=== PATIENT | male | born 1935 | race Caucasian/White ===

== ENCOUNTER → 2018-02-02 09:27 | Outpatient (CLI) | payer MEDICARE, SELFPAY ==
[2018-02-02 09:54] LABS: Prothrombin Time (Protime)PT. 51.4 SECONDS (11.7-14.9)
[2018-02-02 10:03] LABS: International Normalized Ratio 5.6
--- OUTSIDE RECORDS SUMMARY | 2018-05-06 16:15 | XMS RPT_ITS ---
:1935 Author Organization [facility] Care Team Providers Name Role Phone MAIKEL CORDERO Referring Unavailable CORDERO, MAIKEL Canas Referring Unavailable CORDERO, MAIKEL Canas Referring Unavailable CORDERO, MAIKEL Canas Referring Unavailable CORDERO, MAIKEL Canas Referring Unavailable CORDERO, MAIKEL Canas Referring Unavailable OLDER, CHANTELLE ARAMBULA) Attending Unavailable OLDER, CHANTELLE (YADY) Referring Unavailable OLDER, CHANTELLE (YADY) Referring Unavailable CORDERO, MAIKEL Canas Referring Unavailable CORDERO, MAIKEL Canas Referring Unavailable CORDERO, MAIKEL Canas Referring Unavailable CORDERO, MAIKEL Canas Referring Unavailable CORDERO, MAIKEL Canas Referring Unavailable CORDERO, MAIKEL Canas Referring Unavailable CORDERO, MAIKEL Canas Referring Unavailable CORDERO, MAIKEL Canas Referring Unavailable OLDER, CHANTELLE (YADY) Attending Unavailable OLDER, CHANTELLE (YADY) Referring Unavailable CORDERO, MAIKEL Canas Referring Unavailable CORDERO, MAIKEL Canas Referring Unavailable CORDERO, MAIKEL Canas Referring Unavailable Cordero, Maikel Attending Unavailable Cordero, Maikel Referring Unavailable Cordero, Maikel Primary Care Unavailable Cordero, Maikel Attending Unavailable Cordero, Maikel Referring Unavailable Cordero, Maikel Primary Care Unavailable PROBLEMS PROBLEMS DATE TYPE CONDITION / CODE ATTENDING STATUS SOURCE 02/08/2018 Unknown 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, Active Abbi Unspecified atrial Maikel [facility] fibrillation / Hospital I48.91(ICD-10) Repository 05/17/2009 Active Unspecified atrial NA Active [facility] fibrillation / [place] I48.91(ICD-10) Repository 07/08/2017 Active Type 2 diabetes NA Active [facility] mellitus without [place] complications / Repository E11.9(ICD-10) 07/03/2017 Active Other nursing home NA Active [facility] (current) drug [place] therapy / Repository Z79.899(ICD-10) PROCEDURES PROCEDURES No Procedure Records FoundRESULTS RESULTS PROGRESS Observed: 02/25/2018 Status: COMPLETED Source: [place] 1:31 PM [facility] REPOSITORY HNO ID: [id number] Author: Kaylyn Healy LPN Service: (none) Author Type: (none) Type: Progress Notes Filed: 02/25/2018 1:31 PM Note Text: Patient notified of results and provider's instructions. Patient verbalizes understanding. Kaylyn Healy LPN PROGRESS Observed: 02/25/2018 Status: COMPLETED Source: [place] 12:41 PM [facility] REPOSITORY HNO ID: [id number] Author: Maikel Cordero Service: (none) Author Type: Physician Type: Progress Notes Filed: 02/25/2018 1:31 PM Note Text: Increase Coumadin dose to 1.25 mg on Wednesdays and 2.5 mg on all other 6 days. INR in 2 weeks. PROGRESS Observed: 02/25/2018 Status: COMPLETED Source: [place] 10:57 AM [facility] REPOSITORY HNO ID: [id number] Author: Oliva Crowley RN Service: (none) Author Type: (none) Type: Progress Notes Filed: 02/25/2018 10:58 AM Note Text: patient had inr completed at [facility] patients inr is 1.8 (patients inr range is 2.0-3.0) patient is currently taking 1.25mg Mon,Wed and 2.5mg all other days patients last dose change was on 02/18/18 due to a low level of 1.5 (dose at that time was 1.25mg Mon,Wed,Fri and 2.5mg all other days) patient has had no changes in medication except for coumadin and no missed doses and no change in diet Advised patient that they would be contacted regarding medication dose and when to follow up after information is reviewed by provider. After provider review please contact the patient with information and schedule follow up appointment with coumadin clinic. PROGRESS Observed: 02/18/2018 Status: COMPLETED Source: [place] 4:26 PM [facility] REPOSITORY HNO ID: [id number] Author: Kaylyn Healy LPN Service: (none) Author Type: (none) Type: Progress Notes Filed: 02/18/2018 4:26 PM Note Text: Patient notified of results and provider's instructions. Patient verbalizes understanding. Kaylyn Healy LPN PROGRESS Observed: 02/18/2018 Status: COMPLETED Source: [place] 10:20 AM [facility] REPOSITORY HNO ID: [id number] Author: Chantelle Arambula) Domenica Service: (none) Author Type: Nurse Practitioner Type: Progress Notes Filed: 02/18/2018 4:26 PM Note Text: Change dose to 1.25 mg on Mon and Wed only and 2.5 mg all other days. Repeat in 1 week. Chantelle Olea APRN.CNP PROGRESS Observed: 02/18/2018 Status: COMPLETED Source: [place] 9:55 AM [facility] REPOSITORY HNO ID: [id number] Author: Oliva Crowley RN Service: (none) Author Type: (none) Type: Progress Notes Filed: 02/18/2018 9:57 AM Note Text: patient had inr completed at [facility] patients inr is 1.5 (patients inr range is 2.0-3.0) patient is currently taking 1.25mg Mon,Wed,Fri and 2.5mg all other days patients last dose change was on 02/02/18 due to a high level of 6.5 (dose at that time ws 2.5mg daily) patient has had no changes in medication and no uninstructed missed doses and no change in diet FYI - patient just restarted this dose of coumadin on 02/10 Advised patient that they would be contacted regarding medication dose and when to follow up after information is reviewed by provider. After provider review please contact the patient with information and schedule follow up appointment with coumadin clinic. FYI- patient has been scheduled for a 2 week follow up inr on 03/04/18 PROTHROMBIN TIME W/INR Collected: 02/08/2018 Status: F Source: [place] 10:30 AM [facility] REPOSITORY Order Comment: CALL RESULTS TO [phone] TYPE CODE TESTS RESULT OUT OF RANGE REFERENCE UNITS LAB L300.4150 11.7-14.9 SECONDS High PROTIME 22.9 LAB L300.4200 Normal INR 2.0 Performed By: #### L300.3900 #### [facility] [address] [place], [address] PROTIME Collected: 02/08/2018 Status: F Source: [place] 10:25 AM [facility] REPOSITORY TYPE CODE TESTS RESULT OUT OF REFERENCE UNITS RANGE LAB PSEC 9.7-13.0 sec PT Sec Unable to assay. No specimen received. Result Comment: Account Credited LAB INR 0.9-1.3 Unable to PT INR assay. No specimen received. Result Comment: Account Credited Performed By: #### PT #### [facility] [address], [place] [address] PROGRESS Observed: 02/08/2018 Status: COMPLETED Source: [place] 9:51 AM [facility] REPOSITORY HNO ID: [id number] Author: Aiyana (Rn) DRE Martinez Service: (none) Author Type: Registered Nurse Type: Progress Notes Filed: 02/11/2018 4:36 PM Note Text: Pt returns call, message below given with understanding. Pt will come to lab this AM. PROGRESS Observed: 02/05/2018 Status: COMPLETED Source: [place] 3:23 PM [facility] REPOSITORY HNO ID: [id number] Author: Kaylyn Healy LPN Service: (none) Author Type: (none) Type: Progress Notes Filed: 02/11/2018 4:36 PM Note Text: Message left for pt to return call to a nurse. Please ask pt to do INR blood draw with the lab 02/08/18 by 9 am. PROGRESS Observed: 02/05/2018 Status: COMPLETED Source: [place] 2:17 PM [facility] REPOSITORY HNO ID: [id number] Author: Maikel Cordero Service: (none) Author Type: Physician Type: Progress Notes Filed: 02/11/2018 4:36 PM Note Text: Continue holding coumadin. Recheck . PROGRESS Observed: 02/05/2018 Status: COMPLETED Source: [place] 11:08 AM [facility] REPOSITORY HNO ID: [id number] Author: Oliva Crowley RN Service: (none) Author Type: (none) Type: Progress Notes Filed: 02/05/2018 11:10 AM Note Text: patient had inr completed at [facility] patients inr is 6.5 (patients inr range is 2.0-3.0) patient is currently holding (2.5mg daily) patients last dose change was on 02/02/18 due to a high level of >8.0 at the [facility] and lab draw was 5.6 patient has had no changes in medication except for coumadin and no change in diet FYI- patient states that the only thing he did different was Sun and Thursday he had oatmeal with flax seed - pt has been instructed to continue to hold until contact by the office Advised patient that they would be contacted regarding medication dose and when to follow up after information is reviewed by provider. After provider review please contact the patient with information and schedule follow up appointment with coumadin clinic. PROGRESS Observed: 02/02/2018 Status: COMPLETED Source: [place] 1:04 PM [facility] REPOSITORY HNO ID: [id number] Author: Maikel Cordero Service: (none) Author Type: Physician Type: Progress Notes Filed: 02/02/2018 4:14 PM Note Text: Hold coumadin till reordered. INR in 3 days. PROGRESS Observed: 02/02/2018 Status: COMPLETED Source: [place] 10:58 AM [facility] REPOSITORY HNO ID: [id number] Author: Oliva Crowley RN Service: (none) Author Type: (none) Type: Progress Notes Filed: 02/02/2018 10:59 AM Note Text: patient had inr completed at [facility] patients inr is >8.0 (patients inr range is 2.0-3.0) patient is currently taking 2.5mg daily patients last dose change was on 09/16/17 due to a low level of 1.8 (dose at that time was 1.25mg Sun and 2.5mg all other days) patient has had no changes in medication and no missed doses and no change in diet Patient was sent to the lab for a stat lab draw due to CC machine reading level possibly >8.0 Patient has already taken coumadin for today. PROTIME Collected: 02/02/2018 Status: F Source: [place] 8:40 AM [facility] REPOSITORY TYPE CODE TESTS RESULT OUT OF REFERENCE UNITS RANGE LAB PSEC 9.7-13.0 sec Test PT sent to [facility]. Result Comment: Account Credited HIDE LAB INR 0.9-1.3 Test sent to PT INR [facility]. Result Comment: Account Credited HIDE PROTHROMBIN TIME W/INR Collected: 02/02/2018 Status: F Source: [place] 8:36 AM [facility] REPOSITORY TYPE CODE TESTS RESULT OUT OF REFERENCE UNITS RANGE LAB L300.4150 11.7-14.9 SECONDS High PROTIME 51.4 LAB L300.4200 High alert INR 5.6 Result Comment: CRITICAL VALUE VERIFIED. CALLED TO LUIZA ARMAS AT [facility] 02/02/18 1002 [address]. RESULTS READ BACK BY SAME . RESULTS FAXED TO OFFICE 02/02/18 1002 [address]. Performed By: #### L300.3900 #### [facility] [address] [place], [place], [address] PROGRESS Observed: 01/12/2018 Status: COMPLETED Source: [place] 10:29 AM [facility] REPOSITORY HNO ID: [id number] Author: Chantelle Olea Service: (none) Author Type: Nurse Practitioner Type: Progress Notes Filed: 01/12/2018 10:29 AM Note Text: Emanuel Olea, COLTON PROGRESS Observed: 01/12/2018 Status: COMPLETED Source: [place] 9:54 AM [facility] REPOSITORY HNO ID: [id number] Author: Oliva Crowley RN Service: (none) Author Type: (none) Type: Progress Notes Filed: 01/12/2018 9:55 AM Note Text: patient had inr completed at [facility] patients inr is 2.3 (patients inr range is 2.0-3.0) patient is currently taking 2.5mg daily patients last dose change was on 09/16/17 due to a low level of 1.8 (dose at that time was 1.25mg Sun and 2.5mg all other days) patient has had no changes in medication and no change in diet Advised patient to continue on the same dose(s) and that they would only be contacted regarding dosage and follow up instructions after review with provider, if a change is needed. Written instructions given and patient verbalized understanding. Presently scheduled in 3 weeks (02/02/18) for follow up INR. PROGRESS Observed: 01/12/2018 Status: COMPLETED Source: [place] 9:01 AM [facility] O ID: [id number] Author: Chantelle (aYdy) Older Service: (none) Author Type: Nurse Practitioner Type: Progress Notes Filed: 01/12/2018 10:23 AM Note Text: CC: Patient presents with: F/U 6 months HPI Jeanne Martinez is a 82 year old male who presents today for six month follow-up. Denies any concerns or issues today. Diabetes: Diet controlled. He does not check his blood sugars. Excessive thirst, urinary frequency, numbness, tingling or pain in extremities, new or unusual visual symptoms, weight loss/gain or fatigue: Yes, blurred vision Last Ophthalmology exam was 5 years ago. Patient states he just doesn't have the time. Patient's last HgA1C was Hemoglobin A1C (%) Date Value 01/05/2018 6.6 07/03/2017 6.5 ) HTN: does not check BP's. Denies any symptoms referable to elevated blood pressure. Specifically denies headache, chest pain, palpitations, dyspnea and peripheral edema. Patient denies any side effects of his medication(s) and is compliant with their regimen. Last 3 Encounter BP Readings: Date: BP: 01/12/2018 115/80 07/08/2017 100/60 01/14/2017 122/80 Atrial fibrillation: Taking Coumadin. Denies unusual bleeding including black/bloody stools, bleeding gums, hematuria, nose bleeds. 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 - Type II or unspecified type diabetes mellitus without mention of complication, not stated as uncontrolled 11/29/2004 - Unspecified essential hypertension PAST SURGICAL HISTORY Procedure Laterality Date - NONE - TRANSURETHRAL ELEC-SURG PROSTATECTOM 11/03/2014 Dr. Brown ALLERGIES Patient has no known allergies. MEDICATIONS lisinopril (ZESTRIL) 20 mg tablet Take 2 tablets by mouth once daily. lovastatin (MEVACOR) 10 mg tablet Take 1 tablet by mouth daily at bedtime. For cholesterol. metoprolol succinate ER (TOPROL XL) 100 mg Tb24 Take 1 tablet by mouth once daily. warfarin (COUMADIN) 2.5 mg tablet Take 2.5mg Mon/Wed/Fri/Sun or as directed. warfarin (COUMADIN) 3 mg tablet Take 3mg on Thu/Thu/Sat or as directed. blood sugar diagnostic(ACCU-CHEK CARMEN TEST STRIPS) Test blood sugar once per day. Dx: 250.00. Insulin Dep: No. ASCENSIA CONTOUR KIT Glucose Meter MICROLET LANCET Test blood sugar daily and as needed FAMILY HISTORY Problem Relation Age of Onset - Stroke Father - Heart Father - Heart Mother deaseased at age 72 - Arthritis Brother Social History Substance Use Topics - Smoking status: Former Smoker Packs/day: 1.00 Types: Pipe Start date: 02/16/1954 Quit date: 02/16/1966 - Smokeless tobacco: Former User Comment: Quit - Alcohol use Yes Comment: beer occasionally PHYSICAL EXAM BP 115/80 Pulse 79 Temp (!) 35.9 ?C (96.7 ?F) (Temporal Artery) Resp 16 Wt 91.4 kg (201 lb 9.6 oz) SpO2 94% BMI 28.93 kg/m? General Appearance: well appearing, in no acute distress, alert Lungs: lungs clear to auscultation. No wheezing, rhonchi, rales Heart: RRR without murmur, gallop, or rubs. No ectopy DILATED RETINAL EXAM due on 06/25/2016 HBA1C due on 07/05/2018 URINE ALBUMIN:CREATININE RATIO due on 07/08/2018 DIABETIC FOOT EXAM due on 07/08/2018 FECAL OCCULT BLOOD due on 07/08/2018 LDL CHOLESTEROL due on 01/05/2019 DTAP,TDAP,TD(2 - Td) due on 07/09/2027 ADULT PREVNAR-13 Completed INFLUENZA Completed PNEUMOVAX AGE 65 AND OVER WITH 5YR LOOKBACK Completed Component Latest Ref Rng AND Units 01/05/2018 Glucose 74 - 99 mg/dL 118 (H) BUN 9 - 24 mg/dL 19 Creatinine 0.73 - 1.22 mg/dL 1.20 Sodium 136 - 144 mmol/L 141 Potassium 3.7 - 5.1 mmol/L 4.1 Chloride 97 - 105 mmol/L 100 CO2 22 - 30 mmol/L 26 Anion Gap 9 - 18 mmol/L 15 Calcium 8.5 - 10.2 mg/dL 9.0 eGFR- >60 eGFR-All Other Races . 58 Cholesterol, Total <200 mg/dL 134 Triglyceride <150 mg/dL 257 (H) HDL Cholesterol >39 mg/dL 26 (L) LDL Cholesterol <100 mg/dL 57 Non HDL Cholesterol <130 mg/dL 108 Fasting Time hrs 12 VLDL Cholesterol <30 mg/dL 51 (H) TC:HDL Ratio <5.10 5.15 (H) LDL:HDL Ratio <2.54 2.19 Hemoglobin A1C 4.3 - 5.6 % 6.6 (H) Estimated Average Glucose mg/dL 143 Labs reviewed with patient ASSESSMENT/PLAN: 1. 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 - Follow-up in 6 months or sooner as needed - HGB A1C - ALBUMIN/CREAT RATIO RND UR 2. Essential hypertension - ICD9: 401.9, ICD10: I10 - good control - Continue current medication(s) - Goal of BP <130/80 - COMP METABOLIC PANEL - CBC 3. Hyperlipidemia, unspecified hyperlipidemia type - ICD9: 272.4, ICD10: E78.5 - good control - Continue current medication. - COMP METABOLIC PANEL 4. Atrial fibrillation, unspecified type (HCC) - ICD9: 427.31, ICD10: I48.91 Asymptomatic. Stable on Coumadin 5. BPH Stable Prescription instructions reviewed with patient as applicable. Potential red flag symptoms discussed with the patient. Reviewed appropriate action plan to take if red flag symptoms occur. Patient agreeable to treatment plan. Chantelle Olea APRN.YADY CNOV Observed: 01/12/2018 Status: COMPLETED Source: [place] 9:00 AM [facility] REPOSITORY Office Visit (INTMWS) JEANNE MARTINEZ ([id number]) 1935 M Date Time Provider Department 01/12/18 9:00 AM CHANTELLE OLEA (YADY) INTMWS During your visit today, we recorded the following information about you: Temperature Pulse Respiration Blood pressure 96.7 degrees 79/minute 16/minute 115/80 Weight 91.4 kg Chantelle Olea AUDIO PRODUCTION INSTRUCTORMELINA 01/12/2018 10:23 AM Signed CC: Patient presents with: F/U 6 months HPI Jeanne Martinez is a 82 year old male who presents today for six month follow-up. Denies any concerns or issues today. Diabetes: Diet controlled. He does not check his blood sugars. Excessive thirst, urinary frequency, numbness, tingling or pain in extremities, new or unusual visual symptoms, weight loss/gain or fatigue: Yes, blurred vision Last Ophthalmology exam was 5 years ago. Patient states he just doesn't have the time. Patient's last HgA1C was Hemoglobin A1C (%) Date Value 01/05/2018 6.6 07/03/2017 6.5 ) HTN: does not check BP's. Denies any symptoms referable to elevated blood pressure. Specifically denies headache, chest pain, palpitations, dyspnea and peripheral edema. Patient denies any side effects of his medication(s) and is compliant with their regimen. Last 3 Encounter BP Readings: Date: BP: 01/12/2018 115/80 07/08/2017 100/60 01/14/2017 122/80 Atrial fibrillation: Taking Coumadin. Denies unusual bleeding including black/bloody stools, bleeding gums, hematuria, nose bleeds. 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 - Type II or unspecified type diabetes mellitus without mention of complication, not stated as uncontrolled 11/29/2004 - Unspecified essential hypertension PAST SURGICAL HISTORY Procedure Laterality Date - NONE - TRANSURETHRAL ELEC-SURG PROSTATECTOM 11/03/2014 Dr. Brown ALLERGIES Patient has no known allergies. MEDICATIONS lisinopril (ZESTRIL) 20 mg tablet Take 2 tablets by mouth once daily. lovastatin (MEVACOR) 10 mg tablet Take 1 tablet by mouth daily at bedtime. For cholesterol. metoprolol succinate ER (TOPROL XL) 100 mg Tb24 Take 1 tablet by mouth once daily. warfarin (COUMADIN) 2.5 mg tablet Take 2.5mg Thu/Thu/Thu/Thu or as directed. warfarin (COUMADIN) 3 mg tablet Take 3mg on Thu/Thu/Sat or as directed. blood sugar diagnostic(ACCU-CHEK CARMEN TEST STRIPS) Test blood sugar once per day. Dx: 250.00. Insulin Dep: No. ASCENSIA CONTOUR KIT Glucose Meter MICROLET LANCET Test blood sugar daily and as needed FAMILY HISTORY Problem Relation Age of Onset - Stroke Father - Heart Father - Heart Mother deaseased at age 72 - Arthritis Brother Social History Substance Use Topics - Smoking status: Former Smoker Packs/day: 1.00 Types: Pipe Start date: 02/16/1954 Quit date: 02/16/1966 - Smokeless tobacco: Former User Comment: Quit - Alcohol use Yes Comment: beer occasionally PHYSICAL EXAM BP 115/80 Pulse 79 Temp (!) 35.9 ?C (96.7 ?F) (Temporal Artery) Resp 16 Wt 91.4 kg (201 lb 9.6 oz) SpO2 94% BMI 28.93 kg/m? General Appearance: well appearing, in no acute distress, alert Lungs: lungs clear to auscultation. No wheezing, rhonchi, rales Heart: RRR without murmur, gallop, or rubs. No ectopy DILATED RETINAL EXAM due on 06/25/2016 HBA1C due on 07/05/2018 URINE ALBUMIN:CREATININE RATIO due on 07/08/2018 DIABETIC FOOT EXAM due on 07/08/2018 FECAL OCCULT BLOOD due on 07/08/2018 LDL CHOLESTEROL due on 01/05/2019 DTAP,TDAP,TD(2 - Td) due on 07/09/2027 ADULT PREVNAR-13 Completed INFLUENZA Completed PNEUMOVAX AGE 65 AND OVER WITH 5YR LOOKBACK Completed Component Latest Ref Rng AND Units 01/05/2018 Glucose 74 - 99 mg/dL 118 (H) BUN 9 - 24 mg/dL 19 Creatinine 0.73 - 1.22 mg/dL 1.20 Sodium 136 - 144 mmol/L 141 Potassium 3.7 - 5.1 mmol/L 4.1 Chloride 97 - 105 mmol/L 100 CO2 22 - 30 mmol/L 26 Anion Gap 9 - 18 mmol/L 15 Calcium 8.5 - 10.2 mg/dL 9.0 eGFR- >60 eGFR-All Other Races . 58 Cholesterol, Total <200 mg/dL 134 Triglyceride <150 mg/dL 257 (H) HDL Cholesterol >39 mg/dL 26 (L) LDL Cholesterol <100 mg/dL 57 Non HDL Cholesterol <130 mg/dL 108 Fasting Time hrs 12 VLDL Cholesterol <30 mg/dL 51 (H) TC:HDL Ratio <5.10 5.15 (H) LDL:HDL Ratio <2.54 2.19 Hemoglobin A1C 4.3 - 5.6 % 6.6 (H) Estimated Average Glucose mg/dL 143 Labs reviewed with patient ASSESSMENT/PLAN: 1. Controlled type 2 diabetes mellitus without complication, without long-term current use of insulin (HCC) - ICD9: 250.00, ICD10: E11.9 (primary diagnosis) Diet controlled - Ophthalmology referral for eval/management of diabetic eye changes - Discussed diabetic education issues of nursing home diabetic complications and importance of annual examinations with Opthalmology with patient. - Follow-up in 6 months or sooner as needed - HGB A1C - ALBUMIN/CREAT RATIO RND UR 2. Essential hypertension - ICD9: 401.9, ICD10: I10 - good control - Continue current medication(s) - Goal of BP <130/80 - COMP METABOLIC PANEL - CBC 3. Hyperlipidemia, unspecified hyperlipidemia type - ICD9: 272.4, ICD10: E78.5 - good control - Continue current medication. - COMP METABOLIC PANEL 4. Atrial fibrillation, unspecified type (HCC) - ICD9: 427.31, ICD10: I48.91 Asymptomatic. Stable on Coumadin 5. BPH Stable Prescription instructions reviewed with patient as applicable. Potential red flag symptoms discussed with the patient. Reviewed appropriate action plan to take if red flag symptoms occur. Patient agreeable to treatment plan. COLTON Sheppard APRN.CNP 01/12/2018 9:13 AM Signed You are past due for diabetic eye exam. This is very important to have done yearly, especially with symptoms of blurred vision. Call today to schedule with eye doctor. Referring Provider: CHANTELLE OLEA (YADY) [[id number]] Allergies As of Date: 01/12/2018 (No Known Allergies) Date Reviewed: 01/12/2018 Reviewed by: Genny Kauffman Manufacturing Accountant - Fully Assessed Reason for Visit: F/U 6 months [1177] Primary Visit Diagnosis:Controlled type 2 diabetes mellitus without complication, without long-term current use of insulin (HCC) [E11.9] Other Visit Diagnoses:Essential hypertension [I10] Hyperlipidemia, unspecified hyperlipidemia type [E78.5] Atrial fibrillation, unspecified type (HCC) [I48.91] Benign prostatic hyperplasia without lower urinary tract symptoms [N40.0] Order(s):metoprolol succinate ER (TOPROL XL) 100 mg [id number] 1 tablet by mouth once daily.Disp: 30 tabletRfl: 11 HGB A1C [DPHGJ9L] Order #: [id number] FUTURE COMP METABOLIC PANEL [SQCMP] Order #: [id number] FUTURE ALBUMIN/CREAT RATIO RND UR [SQUACR] Order #: [id number] FUTURE CBC [SQCBC] Order #: [id number] FUTURE INR (POC) [[id number]] Order #: [id number]. #:[id number] Prescriptions as of 01/12/2018 Sig: METOPROLOL SUCCINATE ER 100 M* Take 1 tablet by mouth once d* LISINOPRIL 20 MG TABLET Take 2 tablets by mouth once * LOVASTATIN 10 MG TABLET Take 1 tablet by mouth daily * WARFARIN 2.5 MG TABLET Take 2.5mg Mon/Wed/Fri/Sun or* WARFARIN 3 MG TABLET Take 3mg on Thu/Thu/Sat or as* ACCU-CHEK CARMEN STRIPS Test blood sugar once per day* ASCENSIA CONTOUR KIT Glucose Meter MICROLET LANCET Test blood sugar daily and as* Problem List As Of Date 01/12/2018 Noted Resolved Essential hypertension [I10] BPH with obstruction/lower urinary tract sympto*INVALID FOR* Diabetes mellitus type 2, controlled, without c*INVALID FOR* Hyperlipidemia [E78.5] INVALID FOR* Atrial Fibrillation [I48.91] INVALID FOR* PSA elevation [R97.20] INVALID FOR* Retention, urine [R33.9] INVALID FOR* More... Asymptomatic LV dysfunction [I51.9] INVALID FOR* Cardiomyopathy, nonischemic (HCC) [I42.8] INVALID FOR* Chronic anticoagulation [Z79.01] INVALID FOR* Pulmonary hypertension, secondary (HCC) [YBZ118*INVALID FOR* Abnormal echocardiogram [R93.1] INVALID FOR* Other instructions from your clinician: You are past due for diabetic eye exam. This is very important to have done yearly, especially with symptoms of blurred vision. Call today to schedule with eye doctor. Prescriptions ordered this encounter Disp Refills Start End METOPROLOL SUCCINATE ER 100 MG TABLE* 30 t* 11 01/12/2018 Route: ORAL Sig: Take 1 tablet by mouth once daily. Medications Discontinued During This Encounter metoprolol succinate ER (TOPROL XL) * 30 t* 11 01/14/2017 01/12/2018 Cmt: This prescription was filled today(01/09/2016). Any refills authorized will be placed on file. Route: ORAL Sig: Take 1 tablet by mouth once daily. Disc: Reason for discontinue is not on file. Disposition: Return in about 6 months (around 07/12/2018) for routine follow-up. Follow-up and Disposition History Recorded Encounter Status:Closed by CHANTELLE OLEA CNP on 01/12/18 HEMOGLOBIN A1C Collected: 01/05/2018 Status: F Source: [facility] 7:53 AM [facility] REPOS[facility] TYPE CODE TESTS RESULT OUT OF REFERENCE UNITS RANGE LAB HGBA1C 4.3-5.6 % High Hemoglobin A1c 6.6 Result Comment: [place] Diabetes Association guidelines indicate that patients with HgbA1c in the range 5.7-6.4% are at increased risk for development of diabetes, and intervention by lifestyle modification may be beneficial. HgbA1c greater or equal to 6.5% is considered diagnostic of diabetes. LAB HBA0 mg/dL Est. Average Glucose 143 Result Comment: eAG: (Estimated average glucose) is a calculated value from HgbA1c and is sales representative jewelry of the average blood glucose level in the last 2-3 month period. Performed By: #### HBA1C, BMP, LIPB #### [facility] [address] [place], [place] [address] BASIC METABOLIC PANL Collected: 01/05/2018 Status: F Source: [facility] 7:53 AM [facility] REPOSITORY TYPE CODE TESTS RESULT OUT OF REFERENCE UNITS RANGE LAB GLU 74-99 mg/dL High Glucose 118 Result Comment: The [place] Diabetes Association (ADA) provides guidance for cutoff values for fasting glucose and random glucose. The ADA defines fasting as no caloric intake for at least 8 hours. Fas ting plasma glucose results between 100 to 125 mg/dL indicate increased risk for diabetes (prediabetes). Fasting plasma glucose results greater than or equal to 126 mg/dL meet the criteria for diagnosis of diabetes. In the absence of unequivocal hyperglycemia, results should be confirmed by repeat testing. In a patient with classic symptoms of hyperglycemia or hyperglycemic crisis, random plasma glucose results greater than or equal to 200 mg/dL meet the criteria for diagnosis of diabetes. Reference: Standards of Medical Care in Diabetes 2016, [place] Diabetes Association. Diabetes Care. 2016.39(Suppl 1). LAB BUN 9-24 mg/dL BUN 19 LAB CRET 0.73-1.22 mg/dL Creatinine 1.20 LAB NA 136-144 mmol/L Sodium 141 LAB K 3.7-5.1 mmol/L Potassium 4.1 LAB CL 97-105 mmol/L Chloride 100 LAB CO2 22-30 mmol/L CO2 26 LAB AGAP 9-18 mmol/L Anion Gap 15 LAB CA 8.5-10.2 mg/dL Calcium, Total 9.0 LAB GFRAA eGFR- Amer. >60 LAB GFRNAA . eGFR-All Other Races 58 Result Comment: eGFR (Estimated GFR) Units of measure: mL/min/1.73 meters squared eGFR is derived from the reexpressed MDRD Study equation using the following parameters: serum creatinine, age, gender and race. The creatinine assay has been calibrated to be traceable to IDMS. An eGFR <60 mL/min/1.73m2 for >3 months is consistent with chronic kidney disease. Refer to KDOQI guidelines for clinical interpretation. In patients with unstable renal function, e.g. those with acute kidney injury, the eGFR may not accurately reflect actual GFR. Performed By: #### HBA1C, BMP, LIPB #### [facility] [address] [place], [place] [address] LIPID PANEL, BASIC Collected: 01/05/2018 Status: F Source: [facility] 7:53 AM [facility] REPOSITORY TYPE CODE TESTS RESULT OUT OF REFERENCE UNITS RANGE LAB CHOL <200 mg/dL Cholesterol 134 Result Comment: <200 mg/dL, Desirable 200-239 mg/dL, Borderline high >239 mg/dL, High LAB TRIGLY <150 mg/dL Triglyceride High 257 Result Comment: <150 mg/dL, Normal 150-199 mg/dL, Borderline high 200-499 mg/dL, High >499 mg/dL, Very high LAB HDL >39 mg/dL HDL-Cholesterol Low 26 Result Comment: 40-59 mg/dL, Acceptable >59 mg/dL, High: Negative risk factor for coronary heart disease <40 mg/dL, Low: Positive risk factor for coronary heart disease LAB LDL <100 mg/dL LDL-Cholesterol 57 Result Comment: <100 mg/dL, Optimal 100-129 mg/dL, Near optimal/above optimal 130-159 mg/dL, Borderline high 160-189 mg/dL, High >189 mg/dL, Very high Secondary prevention optimal LDL Cholesterol levels are recommended to be < 70 mg/dL LAB NONHDL <130 mg/dL Non HDL Cholesterol 108 Result Comment: <130 mg/dL, Optimal 130-159 mg/dL, Near optimal/above optimal 160-189 mg/dL, Borderline high 190-219 mg/dL, High >219 mg/dL, Very high Secondary prevention optimal non HDL Cholesterol levels are recommended to be < 100 mg/dL LAB FT hrs Fasting Time 12 LAB VLDL <30 mg/dL High VLDL Cholesterol 51 LAB TCHDL <5.10 High TC:HDL Ratio 5.15 LAB LDLHDL <2.54 LDL:HDL Ratio 2.19 Result Comment: Reference: 1. National Cholesterol Education Program ATP III Guideline At-A-Glance Quick Desk Reference: National Heart, Lung, and Blood [place]. National Institutes of Health. 2001: NIH Publication No. 01-3305. 2. An International Atherosclerosis Society position paper: global recommendations for the management of dyslipidemia: executive summary, Atherosclerosis. 2014: 232(2):410-413. Performed By: #### HBA1C, BMP, LIPB #### [facility] [address] [place] [address] CNPTOUTREACH Observed: 12/29/2017 Status: COMPLETED Source: [facility] 12:00 AM [facility] REPOSITORY Patient Outreach (FAMPST) JEANNE MARTINEZ ([id number]) 1935 M Date Time Provider Department 12/29/17 [facility] During your visit today, we recorded the following information about you: Allergies As of Date: 12/29/2017 (No Known Allergies) Date Reviewed: 07/08/2017 Reviewed by: Genny Kauffman Manufacturing Accountant - Fully Assessed Visit Diagnosis:Medication management [Z79.899] Order(s):BASIC METABOLIC PNL [SQBMP] Order #: [id number] FUTURE HGB A1C [UELOU9N] Order #: [id number] FUTURE LIPID PANEL BASIC [SQLIPB] Order #: [id number] FUTURE Prescriptions as of 12/29/2017 Sig: ASCENSIA CONTOUR KIT Glucose Meter ACCU-CHEK CARMEN STRIPS Test blood sugar once per day* LISINOPRIL 20 MG TABLET Take 2 tablets by mouth once * LOVASTATIN 10 MG TABLET Take 1 tablet by mouth daily * MICROLET LANCET Test blood sugar daily and as* WARFARIN 2.5 MG TABLET Take 2.5mg Mon/Wed/Thu/Sun or* WARFARIN 3 MG TABLET Take 3mg on Thu/Thu/Sat or as* X METOPROLOL SUCCINATE ER 100 M* Take 1 tablet by mouth once d* Problem List As Of Date 12/29/2017 Noted Resolved Essential hypertension [I10] BPH with obstruction/lower urinary tract sympto*INVALID FOR* Diabetes mellitus type 2, controlled, without c*INVALID FOR* Hyperlipidemia [E78.5] INVALID FOR* Atrial Fibrillation [I48.91] INVALID FOR* PSA elevation [R97.20] INVALID FOR* Retention, urine [R33.9] INVALID FOR* More... Asymptomatic LV dysfunction [I51.9] INVALID FOR* Cardiomyopathy, nonischemic (HCC) [I42.8] INVALID FOR* Chronic anticoagulation [Z79.01] INVALID FOR* Pulmonary hypertension, secondary (HCC) [HRA057*INVALID FOR* Abnormal echocardiogram [R93.1] INVALID FOR* Encounter Status:Closed by MARILYN LO on 01/29/18 PROGRESS Observed: 12/10/2017 Status: COMPLETED Source: [facility] 1:57 PM [facility] REPOSITORY HNO ID: [id number] Author: Maikel Cordero Service: (none) Author Type: Physician Type: Progress Notes Filed: 12/10/2017 1:57 PM Note Text: Okay. PROGRESS Observed: 12/10/2017 Status: COMPLETED Source: [facility] [facility] 8:01 AM [facility] REPOSITORY HNO ID: [id number] Author: Oliva Crowley RN Service: (none) Author Type: (none) Type: Progress Notes Filed: 12/10/2017 8:09 AM Note Text: patient had inr completed at [facility] patients inr is 2.6 (patients inr range is 2.0-3.0) patient is currently taking 2.5mg daily patients last dose change was on 09/16/17 due to a low level of 1.8 (dose at that time was 1.25mg Sun and 2.5mg all other days) patient has had no changes in medication and no missed doses and no change in diet Advised patient to continue on the same dose(s) and that they would only be contacted regarding dosage and follow up instructions after review with provider, if a change is needed. Written instructions given and patient verbalized understanding. Presently scheduled in 5 weeks (01/12/18) for follow up INR. PROGRESS Observed: 11/13/2017 Status: COMPLETED Source: [facility] 7:56 AM [facility] REPOSITORY HNO ID: [id number] Author: Maikel Cordero Service: (none) Author Type: Physician Type: Progress Notes Filed: 11/13/2017 7:56 AM Note Text: Okay. PROGRESS Observed: 11/12/2017 Status: COMPLETED Source: [facility] 9:07 AM [facility] REPOSITORY HNO ID: [id number] Author: Oliva Crowley RN Service: (none) Author Type: (none) Type: Progress Notes Filed: 11/12/2017 9:08 AM Note Text: patient had inr completed at [facility] patients inr is 2.5 (patients inr range is 2.0-3.0) patient is currently taking 2.5mg daily patients last dose change was on 09/16/17 due to a low level of 1.8 (dose at that times was 1.25mg Sun and 2.5mg all other days) patient has had no changes in medication and no missed doses and no change in diet Advised patient to continue on the same dose(s) and that they would only be contacted regarding dosage and follow up instructions after review with provider, if a change is needed. Written instructions given and patient verbalized understanding. Presently scheduled in 4 weeks (12/10/17) for follow up INR. CNCO Observed: 10/29/2017 Status: COMPLETED Source: [facility] 12:00 AM [facility] REPOSITORY Letter Text Jeanne Martinez [address] [facility] [address] 10/29/2017 [facility] #: [id number] Dear , Due to a change in the provider's schedule it has been necessary to reschedule your Appointment. Your original appointment was scheduled for 01/12/18 at 8:20 AM with Maikel Cordero M.D. Your new appointment is now scheduled on 01/12/18 at 9:00 AM with BRINA Sheppard. If this new appointment is not convenient for you, please contact our office at [phone]. Thank you for choosing the [facility] as your Healthcare Provider . Sincerely, Internal Medicine Appointment Office PROGRESS Observed: 10/15/2017 Status: COMPLETED Source: [facility] 1:14 PM [facility] REPOSITORY HNO ID: [id number] Author: Maikel Cordero Service: (none) Author Type: Physician Type: Progress Notes Filed: 10/15/2017 1:14 PM Note Text: Okay. PROGRESS Observed: 10/15/2017 Status: COMPLETED Source: [facility] 9:32 AM [facility] REPOSITORY HNO ID: [id number] Author: Oliva Crowley RN Service: (none) Author Type: (none) Type: Progress Notes Filed: 10/15/2017 9:33 AM Note Text: patient had inr completed at [facility] patients inr is 2.9 (patients inr range is 2.0-3.0) patient is currently taking 2.5mg daily patients last dose change was on 09/16/17 due to a low level of 1.8 (dose at that time ws 1.25mg Sun and 2.5mg all other days) patient has had no changes in medication and no missed doses and no change in diet Advised patient to continue on the same dose(s) and that they would only be contacted regarding dosage and follow up instructions after review with provider, if a change is needed. Written instructions given and patient verbalized understanding. Presently scheduled in 4 weeks (11/12/17) for follow up INR. PROGRESS Observed: 10/01/2017 Status: COMPLETED Source: [facility] 3:20 PM [facility] REPOSITORY HNO ID: [id number] Author: Maikel Cordero Service: (none) Author Type: Physician Type: Progress Notes Filed: 10/01/2017 3:20 PM Note Text: Okay. PROGRESS Observed: 10/01/2017 Status: COMPLETED Source: [facility] [facility] 8:05 AM [facility] REPOSITORY HNO ID: [id number] Author: Oliva Crowley RN Service: (none) Author Type: (none) Type: Progress Notes Filed: 10/01/2017 8:08 AM Note Text: patient had inr completed at [facility] patients inr is 2.5 (patients inr range is 2.0-3.0) patient is currently taking 2.5mg daily patients last dose change was on 09/16/17 due to a low level of 1.8 (dose at that time was 1.25mg Sun and 2.5mg all other days) patient has had no changes in medication except for coumadin and no missed doses and no change in diet Advised patient to continue on the same dose(s) and that they would only be contacted regarding dosage and follow up instructions after review with provider, if a change is needed. Written instructions given and patient verbalized understanding. Presently scheduled in 2 weeks (10/15/17) for follow up INR. PROGRESS Observed: 09/16/2017 Status: COMPLETED Source: [facility] 1:33 PM [facility] REPOSITORY HNO ID: [id number] Author: Juan Alberto Quinn RN Service: (none) Author Type: (none) Type: Progress Notes Filed: 09/16/2017 1:34 PM Note Text: Patient returned call and given provider instructions below with verbalized understanding. Scheduled next INR check. PROGRESS Observed: 09/16/2017 Status: COMPLETED Source: [facility] 1:10 PM [facility] REPOSITORY HNO ID: [id number] Author: Marilee Estevez RN Service: (none) Author Type: (none) Type: Progress Notes Filed: 09/16/2017 1:11 PM Note Text: Patient called. Left message on voicemail to call back for further instructions and to make folllow up appt. PROGRESS Observed: 09/16/2017 Status: COMPLETED Source: [facility] 9:50 AM [facility] REPOSITORY HNO ID: [id number] Author: Maikel Cordero Service: (none) Author Type: Physician Type: Progress Notes Filed: 09/16/2017 1:34 PM Note Text: Increase Coumadin dose to 2.5 mg daily. INR in 2 weeks. PROGRESS Observed: 09/16/2017 Status: COMPLETED Source: [facility] [facility] 8:02 AM [facility] REPOSITORY HNO ID: [id number] Author: Marilee Estevez RN Service: (none) Author Type: (none) Type: Progress Notes Filed: 09/16/2017 8:04 AM Note Text: Patient had INR completed at [facility] Patient's INR is 1.8 Patient is currently taking 2.5mg M-Sa, 1.25mg Sun Patient's last dose change was 09/02/17 due to high INR at 3.4 Patient has had no medication and states he has been eating more out of his garden. Explained effects of dark green vegetables on his INR. Patient verbalized understanding. Advised patient that they would be contacted regarding medication dose and follow-up once reviewed by provider. After provider review, please contact patient with information and schedule follow-up appointment with coumadin clinic. PROGRESS Observed: 09/02/2017 Status: COMPLETED Source: [facility] 1:57 PM [facility] REPOSITORY HNO ID: [id number] Author: Abril Washburn RN Service: (none) Author Type: (none) Type: Progress Notes Filed: 09/02/2017 1:59 PM Note Text: Spoke with patient. Given message from provider's office. Patient verbalizes understanding. Verified Coumadin/INR recheck instructions by teach back. Scheduled 2 week INR recheck appointment. Abril Washburn RN PROGRESS Observed: 09/02/2017 Status: COMPLETED Source: [facility] 1:57 PM [facility] REPOSITORY HNO ID: [id number] Author: Abril Washburn RN Service: (none) Author Type: (none) Type: Progress Notes Filed: 09/02/2017 1:59 PM Note Text: This note was created using [employer]. Subjective Jeanne Martinez is a 82 year old male. Review of Systems Objective There were no vitals taken for this visit. Physical Exam Assessment and Plan PROGRESS Observed: 09/02/2017 Status: COMPLETED Source: [facility] [facility] 1:48 PM [facility] REPOSITORY HNO ID: [id number] Author: Marilee Estevez RN Service: (none) Author Type: (none) Type: Progress Notes Filed: 09/02/2017 1:49 PM Note Text: Left message on voicemail to speak with triage nurse regarding INR instructions. PROGRESS Observed: 09/02/2017 Status: COMPLETED Source: [facility] 10:09 AM [facility] REPOSITORY HNO ID: [id number] Author: Maikel Cordero Service: (none) Author Type: Physician Type: Progress Notes Filed: 09/02/2017 1:59 PM Note Text: Decrease Coumadin dose. 2.5 mg Mondays thru Saturdays. 1.25 mg on Sundays. INR in 2 weeks. PROGRESS Observed: 09/02/2017 Status: COMPLETED Source: [facility] [facility] 8:04 AM [facility] REPOSITORY HNO ID: [id number] Author: Marilee Estevez RN Service: (none) Author Type: (none) Type: Progress Notes Filed: 09/02/2017 8:25 AM Note Text: Patient had INR completed at [facility] Patient's INR is 3.4 Patient is currently taking 2.5mg daily Patient's last dose change was 06/30/16 due to INR at 3.0 Patient has had no medication and no change in diet. Advised patient that they would be contacted regarding medication dose and follow-up once reviewed by provider. After provider review, please contact patient with information and schedule follow-up appointment with coumadin clinic. PROGRESS Observed: 08/05/2017 Status: COMPLETED Source: [facility] 4:01 PM [facility] REPOSITORY HNO ID: [id number] Author: Maikel Cordero Service: (none) Author Type: Physician Type: Progress Notes Filed: 08/05/2017 4:01 PM Note Text: Ok. PROGRESS Observed: 08/05/2017 Status: COMPLETED Source: [facility] 7:49 AM [facility] REPOSITORY HNO ID: [id number] Author: Marilee Estevez RN Service: (none) Author Type: (none) Type: Progress Notes Filed: 08/05/2017 7:51 AM Note Text: Patient had INR completed at [facility] Patient's INR is 2.8 Patient is currently taking 2.5mg daily Patient's last dose change was 07/10/16 due to INR at 3.0 Patient has had no medication and no change in diet. Advised patient to continue on same dose and they would only be contacted with different instructions after provider review. Written instructions were given to patient and patient verbalized understanding. Presently, patient has been scheduled for 09/02/17 for INR follow up. PROGRESS Observed: 07/08/2017 Status: COMPLETED Source: [facility] [facility] 10:36 AM [facility] REPOSITORY HNO ID: [id number] Author: Maikel Cordero Service: (none) Author Type: Physician Type: Progress Notes Filed: 07/08/2017 10:36 AM Note Text: Okay. ALBUMIN/CREAT RATIO Collected: 07/08/2017 Status: F Source: [facility] 10:25 AM [facility] REPOSITORY TYPE CODE TESTS RESULT OUT OF REFERENCE UNITS RANGE LAB UCRR 20-300 mg/dL Creatinine,Ur 131.9 ine,Ran LAB UALBR 0.0-23.0 mg/L High Albumin Urine 37.1 Random LAB UALBCR 0-30 mg/g Albumin/Creat 28 Ratio Result Comment: 30 to 300 mg/g indicates an increased risk for diabetic nephropathy. Greater than 300 mg/g is consistent with clinical nephropathy. (Am J Kidney Disease 1994, 25:107) Performed By: #### UACR #### [facility] [address] [place] [address] CNOV Observed: 07/08/2017 Status: COMPLETED Source: [facility] 10:00 AM [facility] REPOSITORY Office Visit (INTMWS) JEANNE MARTINEZ ([id number]) 1935 M Date Time Provider Department 07/08/17 10:00 AM CHANTELLE OLEA (YADY) INTMWS During your visit today, we recorded the following information about you: Temperature Pulse Respiration Blood pressure 98.1 degrees 61/minute 18/minute 100/60 Weight 91.4 kg Chantelle Olea APRN.CNP 07/08/2017 10:46 AM Signed CC: Patient presents with: F/U 6 Month HPI Jeanneportia Martinez is a 82 year old male who presents today for six month follow-up. DIABETES MELLITUS: Excessive thirst, urinary frequency, numbness, tingling or pain in extremities, low sugar/hypoglycemic reactions, weight loss/gain or fatigue: No Follows a diabetic diet most of the time. Diet controlled, does not check blood sugars. Last eye exam in 2006. Patient reports occasional blurred vision in both eyes and worsening visual acuity Patient's last HgA1C was Hemoglobin A1C (%) Date Value 07/03/2017 6.5 01/05/2017 6.4 ) HTN: does not check BP's generally. Denies any symptoms referable to elevated blood pressure. Specifically denies headache, chest pain, palpitations, dyspnea, peripheral edema and fatigue. Patient denies any side effects of his medication(s) and is compliant with their regimen. Exercise: denies regular aerobic exercise. Diet: Watches diet for salt (salty snacks, added salt, processed frozen/canned foods), sugary/sweet snacks, unhealthy fats: Yes. 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 - Type II or unspecified type diabetes mellitus without mention of complication, not stated as uncontrolled 11/29/2004 - Unspecified essential hypertension PAST SURGICAL HISTORY Procedure Laterality Date - NONE - TRANSURETHRAL ELEC-SURG PROSTATECTOM 11/03/2014 Dr. Brown ALLERGIES Patient has no known allergies. MEDICATIONS lovastatin (MEVACOR) 10 mg tablet Take 1 tablet by mouth daily at bedtime. For cholesterol. metoprolol succinate ER (TOPROL XL) 100 mg Tb24 Take 1 tablet by mouth once daily. warfarin (COUMADIN) 2.5 mg tablet Take 2.5mg Mon/Thu/Thu/Thu or as directed. lisinopril (ZESTRIL) 20 mg tablet Take 2 tablets by mouth once daily. warfarin (COUMADIN) 3 mg tablet Take 3mg on Thu/Thu/Sat or as directed. blood sugar diagnostic(ACCU-CHEK CARMEN TEST STRIPS) Test blood sugar once per day. Dx: 250.00. Insulin Dep: No. ASCENSIA CONTOUR KIT Glucose Meter MICROLET LANCET Test blood sugar daily and as needed FAMILY HISTORY Problem Relation Age of Onset - Stroke Father - Heart Father - Heart Mother deaseased at age 72 - Arthritis Brother Social History Substance Use Topics - Smoking status: Former Smoker Packs/day: 1.00 Types: Pipe Start date: 02/16/1954 Quit date: 02/16/1966 - Smokeless tobacco: Former User Comment: Quit - Alcohol use Yes Comment: beer occasionally PHYSICAL EXAM BP 100/60 Pulse 61 Temp 36.7 ?C (98.1 ?F) (Temporal Artery) Resp 18 Wt 91.4 kg (201 lb 9.6 oz) SpO2 96% BMI 28.93 kg/m? General Appearance: unkempt, clothes are dirty, does not appear to bathe often, in no acute distress, alert Neck: Thyroid normal size and symmetric without palpable nodules, Neck supple, No adenopathy Lungs: Lungs clear to auscultation. No wheezing, rhonchi, rales Heart: RRR without murmur, gallop, or rubs. No ectopy Feet:Shoes and socks removed, No deformities, ulcers, calluses and trace DP distal pulses DTAP,TDAP,TD(1 - Tdap) due on 08/24/2014 DILATED RETINAL EXAM due on 06/25/2016 DIABETIC FOOT EXAM due on 02/25/2017 FECAL OCCULT BLOOD due on 02/25/2017 URINE ALBUMIN CREATININE RATIO due on 07/28/2017 HBA1C due on 01/03/2018 LDL due on 01/05/2018 ADULT PREVNAR-13 Completed INFLUENZA Completed PNEUMOVAX AGE 65 AND OVER WITH 5YR LOOKBACK Completed Component Latest Ref Rng AND Units 07/03/2017 Hemoglobin A1C 4.3 - 5.6 % 6.5 (H) Estimated Average Glucose mg/dL 140 ASSESSMENT/PLAN: 1. Controlled type 2 diabetes mellitus without complication, without long-term current use of insulin (HCC) - ICD9: 250.00, ICD10: E11.9 (primary diagnosis) Controlled. - Ophthalmology referral for eval/management of diabetic eye changes. Discussed importance of eye care in diabetics, especially with blurred vision. Patient is agreeable, states he will call to schedule - Follow up in 6 months, sooner should any other issues arise. - ALBUMIN/CREAT RATIO RND UR 2. Essential hypertension - ICD9: 401.9, ICD10: I10 - good control - Continue current medication(s) 3. 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 Continue to monitor PSA and symptoms Prescription instructions reviewed with patient as applicable. Potential red flag symptoms discussed with the patient. Reviewed appropriate action plan to take if red flag symptoms occur. Patient agreeable to treatment plan. COLTON Sheppard APRN.CNP 07/08/2017 10:07 AM Signed Call and schedule appointment with eye doctor for diabetic eye exam Referring Provider: CHANTELLE OLEA (YADY) [[id number]] Allergies As of Date: 07/08/2017 (No Known Allergies) Date Reviewed: 07/08/2017 Reviewed by: Genny Kauffman Manufacturing Accountant - Fully Assessed Reason for Visit: F/U 6 Month [444] Primary Visit Diagnosis:Controlled type 2 diabetes mellitus without complication, without long-term current use of insulin (HCC) [E11.9] Other Visit Diagnoses:Essential hypertension [I10] BPH with obstruction/lower urinary tract symptoms [N40.1, N13.8] Order(s):ALBUMIN/CREAT RATIO RND UR [SQUACR] Order #: [id number] FUTURE Prescriptions as of 07/08/2017 Sig: LOVASTATIN 10 MG TABLET Take 1 tablet by mouth daily * METOPROLOL SUCCINATE ER 100 M* Take 1 tablet by mouth once d* WARFARIN 2.5 MG TABLET Take 2.5mg Thu/Thu/Thu/Sun or* LISINOPRIL 20 MG TABLET Take 2 tablets by mouth once * WARFARIN 3 MG TABLET Take 3mg on Thu/Thu/Thu or as* ACCU-CHEK CARMEN STRIPS Test blood sugar once per day* ASCENSIA CONTOUR KIT Glucose Meter MICROLET LANCET Test blood sugar daily and as* Problem List As Of Date 07/08/2017 Noted Resolved Essential hypertension [I10] BPH with obstruction/lower urinary tract sympto*INVALID FOR* Diabetes mellitus type 2, controlled, without c*INVALID FOR* Hyperlipidemia [E78.5] INVALID FOR* Atrial Fibrillation [I48.91] INVALID FOR* PSA elevation [R97.20] INVALID FOR* Retention, urine [R33.9] INVALID FOR* More... Asymptomatic LV dysfunction [I51.9] INVALID FOR* Cardiomyopathy, nonischemic (HCC) [I42.8] INVALID FOR* Chronic anticoagulation [Z79.01] INVALID FOR* Pulmonary hypertension, secondary (HCC) [[id number]*INVALID FOR* Abnormal echocardiogram [R93.1] INVALID FOR* Other instructions from your clinician: Call and schedule appointment with eye doctor for diabetic eye exam Encounter Status:Closed by CHANTELLE OLEA CNP on 07/08/17 PROGRESS Observed: 07/08/2017 Status: COMPLETED Source: [place] 9:58 AM [facility] [place] REPOSITORY HNO ID: [id number] Author: Chantelle (Senior Qa Analyst) Older Service: (none) Author Type: Nurse Practitioner Type: Progress Notes Filed: 07/08/2017 10:46 AM Note Text: CC: Patient presents with: F/U 6 Month HPI Jeanne Martinez is a 82 year old male who presents today for six month follow-up. DIABETES MELLITUS: Excessive thirst, urinary frequency, numbness, tingling or pain in extremities, low sugar/hypoglycemic reactions, weight loss/gain or fatigue: No Follows a diabetic diet most of the time. Diet controlled, does not check blood sugars. Last eye exam in 2006. Patient reports occasional blurred vision in both eyes and worsening visual acuity Patient's last HgA1C was Hemoglobin A1C (%) Date Value 07/03/2017 6.5 01/05/2017 6.4 ) HTN: does not check BP's generally. Denies any symptoms referable to elevated blood pressure. Specifically denies headache, chest pain, palpitations, dyspnea, peripheral edema and fatigue. Patient denies any side effects of his medication(s) and is compliant with their regimen. Exercise: denies regular aerobic exercise. Diet: Watches diet for salt (salty snacks, added salt, processed frozen/canned foods), sugary/sweet snacks, unhealthy fats: Yes. 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 - Type II or unspecified type diabetes mellitus without mention of complication, not stated as uncontrolled 11/29/2004 - Unspecified essential hypertension PAST SURGICAL HISTORY Procedure Laterality Date - NONE - TRANSURETHRAL ELEC-SURG PROSTATECTOM 11/03/2014 Dr. Brown ALLERGIES Patient has no known allergies. MEDICATIONS lovastatin (MEVACOR) 10 mg tablet Take 1 tablet by mouth daily at bedtime. For cholesterol. metoprolol succinate ER (TOPROL XL) 100 mg Tb24 Take 1 tablet by mouth once daily. warfarin (COUMADIN) 2.5 mg tablet Take 2.5mg Thu/Thu/Thu/Thu or as directed. lisinopril (ZESTRIL) 20 mg tablet Take 2 tablets by mouth once daily. warfarin (COUMADIN) 3 mg tablet Take 3mg on Thu/Thu/Sat or as directed. blood sugar diagnostic(ACCU-CHEK CARMEN TEST STRIPS) Test blood sugar once per day. Dx: 250.00. Insulin Dep: No. ASCENSIA CONTOUR KIT Glucose Meter MICROLET LANCET Test blood sugar daily and as needed FAMILY HISTORY Problem Relation Age of Onset - Stroke Father - Heart Father - Heart Mother deaseased at age 72 - Arthritis Brother Social History Substance Use Topics - Smoking status: Former Smoker Packs/day: 1.00 Types: Pipe Start date: 02/16/1954 Quit date: 02/16/1966 - Smokeless tobacco: Former User Comment: Quit - Alcohol use Yes Comment: beer occasionally PHYSICAL EXAM BP 100/60 Pulse 61 Temp 36.7 ?C (98.1 ?F) (Temporal Artery) Resp 18 Wt 91.4 kg (201 lb 9.6 oz) SpO2 96% BMI 28.93 kg/m? General Appearance: unkempt, clothes are dirty, does not appear to bathe often, in no acute distress, alert Neck: Thyroid normal size and symmetric without palpable nodules, Neck supple, No adenopathy Lungs: Lungs clear to auscultation. No wheezing, rhonchi, rales Heart: RRR without murmur, gallop, or rubs. No ectopy Feet:Shoes and socks removed, No deformities, ulcers, calluses and trace DP distal pulses DTAP,TDAP,TD(1 - Tdap) due on 08/24/2014 DILATED RETINAL EXAM due on 06/25/2016 DIABETIC FOOT EXAM due on 02/25/2017 FECAL OCCULT BLOOD due on 02/25/2017 URINE ALBUMIN CREATININE RATIO due on 07/28/2017 HBA1C due on 01/03/2018 LDL due on 01/05/2018 ADULT PREVNAR-13 Completed INFLUENZA Completed PNEUMOVAX AGE 65 AND OVER WITH 5YR LOOKBACK Completed Component Latest Ref Rng AND Units 07/03/2017 Hemoglobin A1C 4.3 - 5.6 % 6.5 (H) Estimated Average Glucose mg/dL 140 ASSESSMENT/PLAN: 1. Controlled type 2 diabetes mellitus without complication, without long-term current use of insulin (HCC) - ICD9: 250.00, ICD10: E11.9 (primary diagnosis) Controlled. - Ophthalmology referral for eval/management of diabetic eye changes. Discussed importance of eye care in diabetics, especially with blurred vision. Patient is agreeable, states he will call to schedule - Follow up in 6 months, sooner should any other issues arise. - ALBUMIN/CREAT RATIO RND UR 2. Essential hypertension - ICD9: 401.9, ICD10: I10 - good control - Continue current medication(s) 3. 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 Continue to monitor PSA and symptoms Prescription instructions reviewed with patient as applicable. Potential red flag symptoms discussed with the patient. Reviewed appropriate action plan to take if red flag symptoms occur. Patient agreeable to treatment plan. Chantelle Olea APRN.DIGITAL ACCOUNT COORDINATOR PROGRESS Observed: 07/08/2017 Status: COMPLETED Source: [place] 9:35 AM [facility] REPOSITORY [facility] ID: [id number] Author: Oliva Crowley RN Service: (none) Author Type: (none) Type: Progress Notes Filed: 07/08/2017 9:36 AM Note Text: patient had inr completed at [facility] patients inr is 2.4 (patients inr range is 2.0-3.0) patient is currently taking 2.5mg daily patients last dose change was on 07/10/16 due to a high normal level of 3.0 (dose at that time was 3mg Tues,Thurs,sat and 2.5mg all other days) patient has had no changes in medication and no missed doses and no change in diet Advised patient to continue on the same dose(s) and that they would only be contacted regarding dosage and follow up instructions after review with provider, if a change is needed. Written instructions given and patient verbalized understanding. Presently scheduled in 4 weeks (08/05/17) for follow up INR. HEMOGLOBIN A1C Collected: 07/03/2017 Status: F Source: [place] 7:40 AM [facility] REPOSITORY TYPE CODE TESTS RESULT OUT OF REFERENCE UNITS RANGE LAB HGBA1C 4.3-5.6 % High Hemoglobin A1c 6.5 LAB HBA0 mg/dL Est. Average Glucose 140 Result Comment: eAG: (Estimated average glucose) is a calculated value from HgbA1c and is sales representative jewelry of the average blood glucose level in the last 2-3 month period. Performed By: #### HBA1C #### [facility] [address] [place] [address] CHUCHOUTRMARISELA Observed: 06/23/2017 Status: COMPLETED Source: [place] 12:00 AM [facility] Patient Outreach ([facility]) JEANNE MARTINEZ ([id number]) 1935 M Date Time Provider Department 06/23/17 MAIKEL CORDERO [facility] During your visit today, we recorded the following information about you: Allergies As of Date: 06/23/2017 (No Known Allergies) Date Reviewed: 06/09/2017 Reviewed by: Oliva Crowley RN - Fully Assessed Visit Diagnosis:Medication management [Z79.899] Order(s):HGB A1C [HBHNT8Y] Order #: [id number] FUTURE Prescriptions as of 06/23/2017 Sig: METOPROLOL SUCCINATE ER 100 M* Take 1 tablet by mouth once d* WARFARIN 2.5 MG TABLET Take 2.5mg Mon/Wed/Thu/Sun or* X LISINOPRIL 20 MG TABLET Take 2 tablets by mouth once * X LOVASTATIN 10 MG TABLET Take 1 tablet by mouth daily * WARFARIN 3 MG TABLET Take 3mg on Thu/Thu/Thu or as* ACCU-CHEK CARMEN STRIPS Test blood sugar once per day* ASCENSIA CONTOUR KIT Glucose Meter MICROLET LANCET Test blood sugar daily and as* Problem List As Of Date 06/23/2017 Noted Resolved Essential hypertension [I10] BPH with obstruction/lower urinary tract sympto*INVALID FOR* Diabetes mellitus type 2, controlled, without c*INVALID FOR* Hyperlipidemia [E78.5] INVALID FOR* Atrial Fibrillation [I48.91] INVALID FOR* PSA elevation [R97.20] INVALID FOR* Retention, urine [R33.9] INVALID FOR* More... Asymptomatic LV dysfunction [I51.9] INVALID FOR* Cardiomyopathy, nonischemic (HCC) [I42.8] INVALID FOR* Chronic anticoagulation [Z79.01] INVALID FOR* Pulmonary hypertension, secondary (HCC) [EHU805*INVALID FOR* Abnormal echocardiogram [R93.1] INVALID FOR* Encounter Status:Closed by [employer] RoojoomUSEBethany on 11/27/17 PROGRESS Observed: 06/10/2017 Status: COMPLETED Source: [place] 11:03 AM [facility] REPOSITORY HNO ID: [id number] Author: Maikel Cordero Service: (none) Author Type: Physician Type: Progress Notes Filed: 06/10/2017 11:03 AM Note Text: Ok. PROGRESS Observed: 06/09/2017 Status: COMPLETED Source: [place] 8:37 AM [facility] REPOSITORY HNO ID: [id number] Author: Oliva Crowley RN Service: (none) Author Type: (none) Type: Progress Notes Filed: 06/09/2017 8:39 AM Note Text: patient had inr completed at [facility] patients inr is 2.1 (patients inr range is 2.0-3.0) patient is currently taking 2.5mg daily patients last dose change was on 07/17/16 due to a high level (dose at that time was 3mg Tues,Thur and 2.5mg all other days) patient has had no changes in medication and no missed dose and no change in diet Advised patient to continue on the same dose(s) and that they would only be contacted regarding dosage and follow up instructions after review with provider, if a change is needed. Written instructions given and patient verbalized understanding. Presently scheduled in 4 weeks (07/08/17) for follow up INR. PROGRESS Observed: 05/12/2017 Status: COMPLETED Source: [place] 11:08 AM [facility] [place] REPOSITORY HNO ID: [id number] Author: Debby Morgan Service: (none) Author Type: Physician Type: Progress Notes Filed: 05/12/2017 11:30 AM Note Text: agree PROGRESS Observed: 05/12/2017 Status: COMPLETED Source: [place] 10:10 AM [facility] REPOSITORY HNO ID: [id number] Author: Oliva Crowley RN Service: (none) Author Type: (none) Type: Progress Notes Filed: 05/12/2017 10:11 AM Note Text: patient had inr completed at [facility] patients inr is 2.0(patients inr range is 2.0-3.0) patient is currently taking 2.5mg daily patients last dose change was on 07/17/16 due to a high level (dose at that time ws 3mg Tues,Thurs and 2.5mg all other days) patient has had no changes in medication and no missed doses and no change in diet Advised patient to continue on the same dose(s) and that they would only be contacted regarding dosage and follow up instructions after review with provider, if a change is needed. Written instructions given and patient verbalized understanding. Presently scheduled in 4 weeks (06/09/17) for follow up INR. CNCO Observed: 05/12/2017 Status: COMPLETED Source: [place] 12:00 AM [facility] REPOSITORY Letter Text [address] [place] [address] [phone] 05/12/2017 Jeanne Martinez [address] [facility] [address] Dear Mr. Martinez: Due to a change in the provider's schedule, it has been necessary to reschedule your appointment. Enclosed please find a new appointment reminder that will replace the one previously sent to you. If this appointment is not convenient for you, please contact our office at [phone]. Thank you for choosing the [facility] as your Healthcare Provider. Sincerely, Appointment Office PROGRESS Observed: 04/16/2017 Status: COMPLETED Source: [place] 10:59 AM [facility] REPOSITORY HNO ID: [id number] Author: Maikel Cordero Service: (none) Author Type: Physician Type: Progress Notes Filed: 04/16/2017 10:59 AM Note Text: Okay. PROGRESS Observed: 04/15/2017 Status: COMPLETED Source: [place] 7:57 AM [facility] REPOSITORY HNO ID: [id number] Author: Oliva Crowley RN Service: (none) Author Type: (none) Type: Progress Notes Filed: 04/15/2017 7:58 AM Note Text: patient had inr completed at [facility] patients inr is 2.5 (patients inr range is 2.0-3.0) patient is currently taking 2.5mg daily patients last dose change was on 07/17/16 due to a high level (dose at that time was 3mg Tues,Thur and 2mg all other days) patient has had no changes in medication and no change in diet Advised patient to continue on the same dose(s) and that they would only be contacted regarding dosage and follow up instructions after review with provider, if a change is needed. Written instructions given and patient verbalized understanding. Presently scheduled in 4 weeks (05/13/17) for follow up INR. PROGRESS Observed: 03/18/2017 Status: COMPLETED Source: [place] 1:37 PM [facility] REPOSITORY HNO ID: [id number] Author: Maikel Cordero Service: (none) Author Type: Physician Type: Progress Notes Filed: 03/18/2017 1:38 PM Note Text: Okay. PROGRESS Observed: 03/18/2017 Status: COMPLETED Source: [place] 7:55 AM [facility] REPOSITORY HNO ID: [id number] Author: Oliva Crowley RN Service: (none) Author Type: (none) Type: Progress Notes Filed: 03/18/2017 7:57 AM Note Text: patient had inr completed at [facility] patients inr is 2.6 (patients inr range is 2.0-3.0) patient is currently taking 2.5mg daily patients last dose change was on 07/03/16 due to a high level of 4.2 (dose at that time was 3mg Tues,Thurs,Sat and 2.5mg all other days) patient has had no changes in medication and no change in diet Advised patient to continue on the same dose(s) and that they would only be contacted regarding dosage and follow up instructions after review with provider, if a change is needed. Written instructions given and patient verbalized understanding. Presently scheduled in 4 weeks (04/15/17) for follow up INR. HOSP Observed: 03/18/2017 Status: COMPLETED Source: [place] 7:45 AM [facility] REPOSITORY Anticoagulation Visit (COUMWS) JEANNE MARTINEZ ([id number]) 1935 M Date Time Provider Department 03/18/17 7:45 AM [facility] During your visit today, we recorded the following information about you: Oliva Crowley RN 03/18/2017 7:57 AM Signed patient had inr completed at [facility] patients inr is 2.6 (patients inr range is 2.0-3.0) patient is currently taking 2.5mg daily patients last dose change was on 07/03/16 due to a high level of 4.2 (dose at that time was 3mg Tues,Thurs,Sat and 2.5mg all other days) patient has had no changes in medication and no change in diet Advised patient to continue on the same dose(s) and that they would only be contacted regarding dosage and follow up instructions after review with provider, if a change is needed. Written instructions given and patient verbalized understanding. Presently scheduled in 4 weeks (04/15/17) for follow up INR. Maikel Cordero MD 03/18/2017 1:38 PM Signed Okay. Referring Provider: MAIKEL CORDERO [[id number]] Allergies As of Date: 03/18/2017 (No Known Allergies) Date Reviewed: 03/18/2017 Reviewed by: Oliva Crowley RN - Fully Assessed Reason for Visit: Anticoagulation [8] Visit Diagnosis:Atrial fibrillation, unspecified type (HCC) [I48.91] Order(s):INR (POC) [[id number]] Order #: [id number]. #:[id number] Prescriptions as of 03/18/2017 Sig: METOPROLOL SUCCINATE ER 100 M* Take 1 tablet by mouth once d* WARFARIN 2.5 MG TABLET Take 2.5mg Thu/Thu/Thu/Sun or* LISINOPRIL 20 MG TABLET Take 2 tablets by mouth once * LOVASTATIN 10 MG TABLET Take 1 tablet by mouth daily * WARFARIN 3 MG TABLET Take 3mg on Thu/Thu/Thu or as* ACCU-CHEK CARMEN STRIPS Test blood sugar once per day* ASCENSIA CONTOUR KIT Glucose Meter MICROLET LANCET Test blood sugar daily and as* Problem List As Of Date 03/18/2017 Noted Resolved Essential hypertension [I10] BPH with obstruction/lower urinary tract sympto*INVALID FOR* Diabetes mellitus type 2, controlled, without c*INVALID FOR* Hyperlipidemia [E78.5] INVALID FOR* Atrial Fibrillation [I48.91] INVALID FOR* PSA elevation [R97.20] INVALID FOR* Retention, urine [R33.9] INVALID FOR* More... Asymptomatic LV dysfunction [I51.9] INVALID FOR* Cardiomyopathy, nonischemic (HCC) [I42.8] INVALID FOR* Chronic anticoagulation [Z79.01] INVALID FOR* Pulmonary hypertension, secondary (HCC) [WBC778*INVALID FOR* Abnormal echocardiogram [R93.1] INVALID FOR* Follow-up and Disposition History Recorded Encounter Status:Closed by MAIKEL CORDERO MD on 03/18/17 ALLERGIES ALLERGIES DATE TYPE / CODE NAME / CODE REACTION SEVERITY SOURCE 11/03/2014 Drug venom-honey Swelling Unknown [facility] Allergy/416 bee/[id number]([facility] 740041(SNOM XNORM) Repository ED CT) Drug NO KNOWN [facility] Class/38412 ALLERGIES [place] 1003(SNOMED Repository CT) ENCOUNTERS ENCOUNTERS ADMIT/DISCHARGE ACCOUNT ADMITTING ENCOUNTER LOCATION SOURCE NUMBER CLASS 02/25/2018/02/26/19 [id number] Ambulatory [address] [place] Repository 02/18/2018/02/22/19 [id number] Ambulatory [address] Repository 02/08/2018 [id number] Ambulatory [facility] ing:LABSPEC Repository 02/08/2018/02/09/20 [id number] Ambulatory [address] Repository 02/05/2018/02/13/20 [id number] Ambulatory [facility] [place] Repository 02/02/2018 [id number] Ambulatory [facility] ing:LABSPEC Repository 02/02/2018/02/03/20 [id number] Ambulatory [facility] [place] Repository 02/02/2018/02/04/20 [id number] Ambulatory [facility] [place] Repository 01/12/2018/01/14/20 [id number] Ambulatory [facility] [place] Repository 01/12/2018/01/14/20 [id number] Ambulatory [facility] [place] Repository 01/05/2018/01/06/20 [id number] Ambulatory [facility] [place] Repository 12/10/2017/12/12/19 [id number] Ambulatory [facility] [place] Repository 11/12/2017/11/14/19 [id number] Ambulatory [facility] [place] Rep[place] 10/15/2017/10/17/19 [id number] Ambulatory [facility] [place] Rep[place] 10/01/2017/10/03/19 [id number] Ambulatory [facility] [place] Repository 09/16/2017/09/18/19 [id number] Ambulatory [facility] [place] Repository 09/02/2017/09/04/19 [id number] Ambulatory [facility] [place] Repository 08/05/2017/08/07/19 [id number] Ambulatory [facility] [place] Repository 07/08/2017/07/09/19 [id number] Ambulatory [facility] [place] Repository 07/08/2017/07/10/19 [id number] Ambulatory [facility] [place] Repository 07/08/2017/07/10/19 [id number] Ambulatory [facility] [place] Repository 07/03/2017/07/04/19 [id number] Ambulatory [facility] [place] Repository 06/09/2017/06/11/19 [id number] Ambulatory [facility] [place] Repository 05/12/2017/05/14/19 [id number] Ambulatory [facility] [place] Repository 04/15/2017/04/17/19 [id number] Ambulatory [facility] [place] Repository 03/18/2017/03/18/19 [id number] Ambulatory [facility] [place] Repository PAYERS PAYERS ENCOUNTER GUARANTOR PAYER SUBSCRIBER SOURCE 02/08/2018 JEANNE MARTINEZ460 Primary JEANNE JUNIORB: [place] Insurance[id number] [address]Fcw: (330) Number: Repository [phone] () [id number] Date:2018-02-08 02/08/2018 Secondary NOT GIVENUNK Abbi Insurance:SELF PAY [facility] Number: Effective Repository Date:2018-02-08 02/02/2018 JEANNE CONTE0 Primary JEANNE JNUIORB: [place] Insurance:MEDICARE [id number] [facility] [id number]: [phone] Number: Repository [phone] () [id number] Date:2018-02-02 02/02/2018 Secondary NOT GIVENUNK Abbi Insurance:SELF PAY [facility] Number: Effective Repository Date:2018-02-02
== END ==
PROVIDERS: Family Provider Internal Medicine; PCP Internal Medicine; Referring Provider Internal Medicine; Visit Provider Internal Medicine
DX: I48.91 Unspecified atrial fibrillation (principal)
CPT/HCPCS: 85610

== ENCOUNTER → 2018-02-08 11:15 | Outpatient (CLI) | payer MEDICARE, SELFPAY ==
[2014-11-03 13:51] VITALS: BMI 27.7
[2018-02-08 11:32] LABS: Prothrombin Time (Protime)PT. 22.9 SECONDS (11.7-14.9)
== END ==
PROVIDERS: Family Provider Internal Medicine; PCP Internal Medicine; Referring Provider Internal Medicine; Visit Provider Internal Medicine
DX: I48.91 Unspecified atrial fibrillation (principal)
CPT/HCPCS: 85610